=== PATIENT | female | born 1990 ===

== ENCOUNTER 2024-11-20 06:43 | Outpatient (CLI) | payer SELFPAY ==
[2024-11-20] MEDS ORDERED: GADOTERATE MEGLUMINE 7.5 MMOL/15 ML VIAL IV ONE (06:54)
[2024-11-20] MEDS ORDERED: LIDOcaine 1% (10mg/ml)w/preservative inj. 20ml MDV ONE (06:55)
[2024-11-20] MEDS ORDERED: iohexol 300 MG/1 ML 50ml polymer ONE (06:55)
[2024-11-20] MEDS ORDERED: LIDOcaine 1% 30ml preserv. free vial ONE (06:56)
[2024-11-20] MEDS ORDERED: LIDOcaine 1%/PF 5ML 10 MG/ML VIAL ONE (06:57)
--- NOTE | 2024-11-20 08:43 | RADIOLOGY REPORT ---
CLINICAL INFORMATION: Wrist pain. COMPARISON: Correlation made to same day arthrogram injection images. TECHNIQUE: Multisequence multiplanar MRI images of the right wrist were obtained after the uneventful intra-articular injection of dilute gadolinium contrast under fluoroscopic guidance. FINDINGS: TFCC: Indistinctness of the fibers of the TFCC at its ulnar styloid attachment, suspected partial tea r, with contrast extending into the partial tear. Foveal attachment of the TFCC appears intact. Flaquita cular disc of the TFCC is intact. No contrast extends from the radiocarpal joint into the DRUJ. ULNAR VARIANCE: Neutral. DRUJ: Unremarkable. No dislocation or subluxation. LIGAMENTS: Scapholunate ligament is intact. There is trace contrast interposed between the lunate and triquetrum, suspected small perforation of the lunotriquetral ligament. There is tear of the ulnar c ollateral ligament of the wrist, with contrast extending from the radiocarpal joint through the defec t and coursing along the ulnar aspect of the distal ulna from its ulnar attachment. There is suspecte d tear of the volar ulnar triquetral ligament. FLEXOR TENDONS: Unremarkable signal intensity and course. No significant tendinosis, tenosynovitis, o r tear. CARPAL TUNNEL: Unremarkable. Normal appearance of the median nerve and flexor retinaculum. EXTENSOR TENDONS: Unremarkable signal intensity and course. No significant tendinosis, tenosynovitis, or tear. BONES/JOINTS: No fracture or focal marrow contusion OTHER: No other significant findings. IMPRESSION: 1. Ligamentous tears of the ulnar side of the wrist as described above, appears to involve the ulnar styloid attachment of the TFCC, ulnar collateral ligament, and volar ulnar triquetral ligament. 2. Suspected small perforation in the lunotriquetral ligament. 3. Additional findings as described above.
--- NOTE | 2024-11-20 08:44 | RADIOLOGY REPORT ---
ANGIO ARTHROGRAM (A) Date: 11/20/2024 07:32 AM Clinical History: RIGHT WRIST PAIN Comparison: None Procedure: Verbal and written informed consent were obtained from the patient for the procedure of RIGHT WRIST fluoroscopically guided arthrogram, after the procedure, risks, and benefits of the procedure were ex plained to the patient. Risks include bleeding, infection, reaction to injected medications, and dam age to surrounding anatomic structures. The patient's questions were answered. The patient's most r ecent medical history was reviewed. A time out was performed to verify the patient's name, date of , and correct location of the pro cedure, prior to initiation of the procedure. The patient tolerated the procedure well. There were no immediate complications. Home-care instruct ions were reviewed with the patient prior to the patient's discharge from the fluoroscopy suite. The patient verbally affirmed understanding of these instructions. Impression: Technically successful fluoroscopically guided RIGHT WRIST JOINT arthrogram. The patient was transpo rted to MRI for further imaging at the completion of the procedure. Procedure by Dr. Bundy
== END 2024-11-20 23:59 | disposition home or self-care (01) ==
LOC: RAD 06:43
PROVIDERS: ATTEND Family Medicine Sports Medicine
DX: M77.11 Lateral epicondylitis, right elbow (principal); M77.00 Medial epicondylitis, unspecified elbow; G56.00 Carpal tunnel syndrome, unspecified upper limb; M54.2 Cervicalgia; M79.641 Pain in right hand
CPT/HCPCS: 25246; 73222; 77002; A9575; J2003; J3490; Q9967